=== PATIENT | female | born 1995 ===

== ENCOUNTER 2019-12-14 11:25 | Emergency (ER) | payer OTHER ==
[~2019-12-14] VITALS: Ht 167.6 cm; Wt 89.8 kg
== END 2019-12-14 15:26 | disposition home or self-care (01) ==
LOC: ER 11:25
DX: N64.4 Mastodynia (principal)

== ENCOUNTER 2020-08-19 02:16 | Emergency (ER) | payer OTHER ==
[~2020-08-19] VITALS: Ht 167.6 cm; Wt 95.3 kg
[2020-08-19] MEDS ORDERED: INTESTINEX680 M2 PO (07:05)
[2020-08-19] MEDS ORDERED: AMOX-CLAV 875-1 EACH PO (07:05)
[2020-08-19] MEDS ORDERED: PEPCID AC20 MG PO (07:11)
[2020-08-19] MEDS ORDERED: NAPROXEN500 MG PO (07:11)
== END 2020-08-19 07:23 | disposition home or self-care (01) ==
LOC: ER 02:16
DX: S80.212A Abrasion, left knee, initial encounter (principal); W01.198A Fall on same level from slipping, tripping and stumbling with subsequent striking against other object, initial encounter; Y93.01 Activity, walking, marching and hiking; Y92.017 Garden or yard in single-family (private) house as the place of occurrence of the external cause; Y99.8 Other external cause status; Z20.822 Contact with and (suspected) exposure to COVID-19